=== PATIENT | male | born 1985 | race Caucasian/White ===

== ENCOUNTER 2019-04-14 20:13 | Emergency (ER) | payer BC, OTHER ==
[2019-04-14] MEDS ORDERED: NA CHLORIDE 0.9% 1,000 ML ONE (20:34)
--- NOTE | 2019-04-14 20:40 | RAD REPORT ---
EXAM DESCRIPTION: CT - Head Brain Wo Cont - 04/14/2019 8:30 pm CLINICAL HISTORY: Syncope COMPARISON: None. TECHNIQUE: Computed axial tomography of the head was obtained. IV contrast was not requested. All CT scans are performed using dose optimization technique as appropriate and may include automated exposure control or mA/KV adjustment according to patient size. FINDINGS: An intracranial bleed is not seen . The ventricles are normal in caliber. No extra-axial fluid collection is noted. Opacification of left frontal sinus with partial opacification of left ethmoid sinus and mild mucoper iosteal thickening left maxillary sinus compatible with sinusitis IMPRESSION: No acute intracranial abnormality is seen. If patient's symptoms persist MRI of the bra in would be recommended. Sinusitis
[2019-04-14 20:43] LABS: Absolute Lymphocytes (CBC) 2.5 K/uL (0.7-4.9); Basophils % 0.5 % (0-1.3); Hematocrit 41.7 % (39.6-49.0); Lymphocytes % 21.4 % (15.3-44.8); MPV 8.8 fL (7.6-11.3); RBC Red Blood Cell Count 4.71 M/uL (4.33-5.43)
[2019-04-14 21:10] LABS: BUN Blood Urea Nitrogen 15 mg/dL (7-18); Bicarbonate 25 mmol/L (21-32); Creatine Phosphokinase 138 U/L (39-308); Glucose Level 86 mg/dL (74-106); Potassium 4.3 mmol/L (3.5-5.1); Sodium Level 140 mmol/L (136-145); Troponin (Emerg Dept Use Only) < 0.02 ng/mL (0.0-0.045)
[2019-04-14 22:31] LABS: Urine Blood NEGATIVE (NEG); Urine Glucose NEGATIVE (NEG); Urine Protein NEGATIVE (NEG); Urine Specific Gravity 1.015 (1.005-1.030); Urine pH 5.5 (5.0-7.0)
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
--- NOTE | 2019-04-14 22:34 | EDPHYS ---
Physician Documentation [facility] Name: Michael Schuster Age: 34 yrs Sex: Male : 1985 Arrival Date: 04/14/2019 Time: 20:16 Bed 5 Private MD: ED Physician Drew Branch HPI: 04/14 20:23 This 34 yrs old Male presents to ER via Unassigned with complaints of Syncope.rn 20:23 The patient has experienced syncope. Onset: The symptoms/episode began/occurred just rn prior to arrival. Duration: This was a single episode, that lasted 20 second(s). Associated injury: The patient did not suffer any apparent associated injury. Current symptoms: Currently, the patient is not experiencing any symptoms. The patient has not experienced similar symptoms in the past. 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 No injury. No family hx of early cardiac problems or stroke. Patient states drinks a lot of caffeine and didn't eat prior to going to work. Glucose normal, given fluids and air conditioning and now back to normal. No focal neuro complaints. . Historical: - Allergies: 20:31 PENICILLINS; ea 20:31 Azithromycin; ea - Home Meds: 20:31 None [Active]; ea - PMHx: 20:31 None; ea - PSHx: 20:31 None; ea - Immunization history:: Adult Immunizations up to date. - Social history:: Smoking status: Patient/guardian denies using tobacco. - Family history:: not pertinent. - Ebola Screening: : No symptoms or risks identified at this time. - Hospitalizations: : No recent hospitalization is reported. ROS: 20:23 Constitutional: Negative for fever, chills, and weight loss, Eyes: Negative for injury, rn pain, redness, and discharge, Neck: Negative for injury, pain, and swelling, Cardiovascular: Negative for chest pain, palpitations, and edema, Respiratory: Negative for shortness of breath, cough, wheezing, and pleuritic chest pain, Abdomen/GI: Negative for abdominal pain, diarrhea, and constipation, MS/Extremity: Negative for injury and deformity, Skin: Negative for injury, rash, and discoloration, Neuro: Negative for headache, weakness, numbness, tingling, and seizure. Exam: 20:23 Constitutional: This is a well developed, well nourished patient who is awake, alert, rn and in no acute distress. Head/Face: Normocephalic, atraumatic. Eyes: Pupils equal round and reactive to light, extra-ocular motions intact. Lids and lashes normal. Conjunctiva and sclera are non-icteric and not injected. Cornea within normal limits. Periorbital areas with no swelling, redness, or edema. ENT: dry MM Neck: Trachea midline, no thyromegaly or masses palpated, and no cervical lymphadenopathy. Supple, full range of motion without nuchal rigidity, or vertebral point tenderness. No Meningismus. Cardiovascular: Regular rate and rhythm with a normal S1 and S2. No gallops, murmurs, or rubs. No JVD. No pulse deficits. Respiratory: Lungs have equal breath sounds bilaterally, clear to auscultation. No increased work of breathing, no retractions or nasal flaring. Abdomen/GI: soft, non-tender MS/ Extremity: Pulses equal, no cyanosis. Neurovascular intact. Full, normal range of motion. Equal circumference. Neuro: Awake and alert, GCS 15, oriented to person, place, time, and situation. Cranial nerves II-XII grossly intact. Motor strength 5/5 in all extremities. Sensory grossly intact. Cerebellar exam normal. 20:37 ECG was reviewed by the Attending Physician. rn Vital Signs: 20:31 BP 127 / 92; Pulse 81; Resp 18; Temp 98.1; Pulse Ox 100% ; Weight 70.76 kg; Height 5 ea ft. 7 in. (170.18 cm); Pain 0/10; 21:42 BP 115 / 64; Pulse 102; Resp 18; Pulse Ox 99% ; ea 22:35 BP 136 / 91; Pulse 98; Resp 18; Temp 98.1; Pulse Ox 99% on R/A; ak1 20:31 Body Mass Index 24.43 (70.76 kg, 170.18 cm) ea MDM: 20:18 Patient medically screened. rn 22:31 Differential Diagnosis: cardiac arrhythmia, idiopathic syncope, vasovagal episode, rn dehydration, heat exhaustion. Data reviewed: vital signs, nurses notes. Data reviewed: lab test result(s), EKG, radiologic studies, CT scan, and as a result, I will discharge patient. Counseling: I had a detailed discussion with the patient and/or guardian regarding: the historical points, exam findings, and any diagnostic results supporting the discharge/admit diagnosis, lab results, radiology results, the need for outpatient follow up, to return to the emergency department if symptoms worsen or persist or if there are any questions or concerns that arise at home. Response to treatment: the patient's symptoms have markedly improved after treatment, the patient's symptoms have resolved after treatment, the patient's condition has returned to base line, the patient is now symptom free, patient is well hydrated. and as a result, I will discharge patient. Special discussion: I discussed with the patient/guardian in detail that at this point there is no indication for admission to the hospital. It is understood, however, that if the symptoms persist or worsen the patient needs to return immediately for re-evaluation. 04/14 20:19 Order name: Basic Metabolic Panel; Complete Time: 21:20 rn 04/14 20:19 Order name: CBC with Diff; Complete Time: 21:20 rn 04/14 20:19 Order name: CPK; Complete Time: 21:20 rn 04/14 20:19 Order name: Troponin (emerg Dept Use Only); Complete Time: 21:20 rn 04/14 20:52 Order name: Glucose, Ancillary Testing; Complete Time: 21:20 EDMS 04/14 22:29 Order name: Urine Dipstick--Ancillary (enter results); Complete Time: 22:33 cm6 04/14 20:19 Order name: CT Head Brain wo Cont; Complete Time: 20:47 rn 04/14 20:19 Order name: EKG; Complete Time: 20:20 rn 04/14 20:19 Order name: Cardiac monitoring; Complete Time: 20:42 rn 04/14 20:19 Order name: EKG - Nurse/Tech; Complete Time: 20:42 rn 04/14 20:19 Order name: IV Saline Lock; Complete Time: 20:42 rn 04/14 20:48 Order name: CT Head Angio rn 04/14 20:48 Order name: CT Neck Angio rn 04/14 20:19 Order name: Labs collected and sent; Complete Time: 20:42 rn 04/14 20:19 Order name: O2 Per Protocol; Complete Time: 20:23 rn 04/14 20:19 Order name: O2 Sat Monitoring; Complete Time: 20:23 rn 04/14 20:19 Order name: Urine Dipstick-Ancillary (obtain specimen); Complete Time: 22:20 rn EC:37 Rate is 85 beats/min. Rhythm is regular. QRS [place] is Normal. IA interval is normal. QRS rn interval is normal. QT interval is normal. No Q waves. T waves are Normal. No ST changes noted. Clinical impression: Normal ECG. Interpreted by me. Reviewed by me. Administered Medications: 20:42 Drug: NS 0.9% 1000 ml Route: IV; Rate: 1000 ml; Site: left antecubital; ak1 22:47 Follow up: Response: No adverse reaction; IV Status: Completed infusion; IV Intake: ea 1000ml Point of Care Testing: Blood Glucose: :42 Blood Glucose: 83 mg/dL; ak1 Ranges: Critical Glucose Levels:Adult <50 mg/dl or >400 mg/dl <40 mg/dl or >180 mg/dl Disposition: 04/14/19 22:32 Discharged to Home. Impression: Syncope and collapse. - Condition is Stable. - Discharge Instructions: Syncope. - Medication Reconciliation Form, Thank You Letter, Antibiotic Education, Prescription Opioid Use, Work release form, Family Work Release form. - Follow up: Private Physician; When: As needed; Reason: Recheck today's complaints, Re-evaluation by your physician. - Problem is new. - Symptoms have improved. Signatures: Dispatcher [employer] EDMS Drew Branch MD MD rn Krenek, Amber, RN RN ak1 Margarita Amaya RN RN ea Corrections: (The following items were deleted from the chart) 22:49 22:32 04/14/2019 22:32 Discharged to Home. Impression: Syncope and collapse. Condition ea is Stable. Forms are Medication Reconciliation Form, Thank You Letter, Antibiotic Education, Prescription Opioid Use. Follow up: Private Physician; When: As needed; Reason: Recheck today's complaints, Re-evaluation by your physician. Problem is new. Symptoms have improved. rn
[2019-04-14 23:18] VITALS: TEMP 98.1
[2019-04-14 23:20] VITALS: O2SAT 99
[2019-04-14 23:21] VITALS: BP 136/91
--- NOTE | 2019-04-15 09:41 | RAD REPORT ---
EXAM DESCRIPTION: CT ANGIOGRAPHY OF THE HEAD AND NECK CLINICAL HISTORY: Syncope. TECHNIQUE: Following the administration of intravenous contrast, thin section axial CT angiography i mages of the head and neck were obtained. Coronal and sagittal reformatted images were generated. This exam was performed according to our departmental dose-optimization program, which includes auto mated exposure control, adjustment of the mA and/or kV according to patient size and/or use of iterat ely reconstruction technique. INTRAVENOUS CONTRAST: Not documented. Please refer to medical record. COMPARISON: None FINDINGS: CTA BRAIN: The distal petrous, cavernous, and supraclinoid internal carotid arteries are unremarkable. The BRANT and MCA branches have a normal course and caliber. An anterior communicating artery is seen . The basilar and vertebral arteries have a normal course and caliber. The left vertebral artery is d ominant. The TOEING STOCKINGS and bilateral SCA branches show no focal abnormalities. The origins of the PICAs are visualized. The P1 segment of the right posterior cerebral artery is hypoplastic. There is evide nce of a posterior communicating artery on the right.. CTA NECK: There is a normal three vessel aortic arch. The origins of the vessels arising from the arch are pa tent. Anterior Circulation: The common or cervical internal carotid arteries are unremarkable. The caroti d bulbs are unremarkable. Posterior Circulation: The vertebral arteries arise from the subclavian arteries. The vertebral a rtery origins are patent. The left vertebral artery is dominant. COMBINED IMPRESSION: 1. 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 2. Otherwise, unremarkable study. Electronically signed by: Jean Marie Resendiz MD 04/14/2019 9:47 PM BLOOM CONVEYOR OPERATOR Due to temporary technical issues with the PACS/Fluency reporting system, reports are being signed by the in house radiologist as a courtesy to ensure prompt reporting. The interpreting radiologist is f ully responsible for the content of the report.
--- NOTE | 2019-04-15 09:42 | RAD REPORT ---
EXAM DESCRIPTION: CT ANGIOGRAPHY OF THE HEAD AND NECK CLINICAL HISTORY: Syncope. TECHNIQUE: Following the administration of intravenous contrast, thin section axial CT angiography i mages of the head and neck were obtained. Coronal and sagittal reformatted images were generated. This exam was performed according to our departmental dose-optimization program, which includes auto mated exposure control, adjustment of the mA and/or kV according to patient size and/or use of iterat ely reconstruction technique. INTRAVENOUS CONTRAST: Not documented. Please refer to medical record. COMPARISON: None FINDINGS: CTA BRAIN: The distal petrous, cavernous, and supraclinoid internal carotid arteries are unremarkable. The BRANT and MCA branches have a normal course and caliber. An anterior communicating artery is seen . The basilar and vertebral arteries have a normal course and caliber. The left vertebral artery is d ominant. The REFRIGERATION TECH and bilateral SCA branches show no focal abnormalities. The origins of the PICAs are visualized. The P1 segment of the right posterior cerebral artery is hypoplastic. There is evide nce of a posterior communicating artery on the right.. CTA NECK: There is a normal three vessel aortic arch. The origins of the vessels arising from the arch are pa tent. Anterior Circulation: The common or cervical internal carotid arteries are unremarkable. The caroti d bulbs are unremarkable. Posterior Circulation: The vertebral arteries arise from the subclavian arteries. The vertebral a rtery origins are patent. The left vertebral artery is dominant. COMBINED IMPRESSION: 1. 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 2. Otherwise, unremarkable study. Electronically signed by: Jean Marie Resendiz MD 04/14/2019 9:47 PM BAKERY AND DELI SALES MANAGER Due to temporary technical issues with the PACS/Fluency reporting system, reports are being signed by the in house radiologist as a courtesy to ensure prompt reporting. The interpreting radiologist is f ully responsible for the content of the report.
--- NOTE | 2019-04-15 17:25 | EKG ---
Test Date: 2019-04-14 Test Time: 20:35:52 Burning Supervisor: REID MEASUREMENT RESULTS: Intervals: Rate: 85 MI: 168 QRSD: 92 QT: 336 QTc: 399 [place]: P: 63 MI: 168 QRS: 36 T: 36 INTERPRETIVE STATEMENTS: Normal sinus rhythm Normal ECG No previous ECG available for comparison Electronically Signed On 04-15-19 17:22:02 CEMENT SACK BREAKER by Tyree Cisneros
== END 2019-04-14 22:49 | disposition home or self-care (01) ==
LOC: ER 20:13
DX: R55 Syncope and collapse (principal); Z88.0 Allergy status to penicillin; Z88.1 Allergy status to other antibiotic agents
CPT/HCPCS: 93005; 85025; 80048; 36415; 82550; 82947; 81003; 84484; 70450; 70496; 70498; Q9967; 96360; 96361; 99284; J7030

== ENCOUNTER 2021-12-26 13:48 | Emergency (ER) | payer OTHER ==
[2021-12-26] MEDS ORDERED: NA CHLORIDE 0.9% 1,000 ML ONE (14:09)
[2021-12-26 14:23] LABS: Absolute Lymphocytes (CBC) 2.4 K/uL (0.7-4.9); Hematocrit 41.5 % (39.6-49.0); Lymphocytes % 33.3 % (15.3-44.8); MCV 88.7 fL (80-100); MPV 8.7 fL (7.6-11.3); RBC Red Blood Cell Count 4.68 M/uL (4.33-5.43)
[2021-12-26 14:36] LABS: Potassium 3.3 mmol/L (3.5-5.1)
[2021-12-26 15:06] LABS: Urine Blood Negative (Negative); Urine Glucose Negative (Negative); Urine Protein Negative (Negative); Urine Specific Gravity 1.025 (1.005-1.030); Urine pH 5.5 (5.0-7.0)
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
[2021-12-26] MEDS ORDERED: POTASSIUM CL SA 10 MEQ TAB PO ONE (15:42)
[2021-12-26 15:54] VITALS: BP 116/78; O2SAT 99
== END 2021-12-26 15:42 | disposition home or self-care (01) ==
LOC: ER 13:48
DX: T67.5XXA Heat exhaustion, unspecified, initial encounter (principal); Z88.0 Allergy status to penicillin; Z88.3 Allergy status to other anti-infective agents
CPT/HCPCS: 36415; 80048; 81003; 82550; 85025; J7030

== ENCOUNTER 2023-09-29 01:10 | Emergency (ER) | payer BC, OTHER ==
[2023-09-29 02:14] LABS: PT Prothrombin Time 10.7 SECONDS (9.5-12.5); Protime INR 0.97
[2023-09-29 02:15] LABS: Absolute Basophils 0.1 K/uL (0-0.5); Absolute Eosinophils 0.2 K/uL (0-0.5); Absolute Lymphocytes (CBC) 3.3 K/uL (0.7-4.9); Absolute Monocytes 0.7 K/uL (0.1-1.3); Absolute Neutrophil 3.5 K/uL (1.8-8.0); Basophils % 0.7 % (0-1.3); Eosinophils % 2.3 % (0-4.4); Hematocrit 40.2 % (39.6-49.0); Hemoglobin 14.1 g/dL (13.6-17.9); Lymphocytes % 42.3 % (15.3-44.8); MCH 31.7 pg (27.0-35.0); MCHC 35.1 g/dL (32.0-36.0); MCV 90.2 fL (80-100); MPV 9.1 fL (7.6-11.3); Monocytes % 9.1 % (3.3-12.3); Neutrophils % 45.6 % (41.7-73.7); Platelets 250 thou/uL (152-406); RBC Red Blood Cell Count 4.46 M/uL (4.33-5.43); Red Cell Distribution Width 12.8 % (12.1-15.2)
[2023-09-29 02:30] LABS: ALT/SGPT 109 U/L (16-61); AST/SGOT 68 U/L (15-37); Albumin 3.6 g/dL (3.4-5.0); Albumin/Globulin Ratio 1.1 (1.1-1.8); Alkaline Phosphatase 114 U/L (45-117); Anion Gap 7.4 mEq/L (5.0-15.0); BUN Blood Urea Nitrogen 15 mg/dL (7-18); Bicarbonate 29 mEq/L (21-32); Bilirubin Direct 0.3 mg/dL (0-0.2); Bilirubin Total 1.3 mg/dL (0.2-1.0); Globulin 3.3 g/dL (2.3-3.5); Glomerular Filtration Rate 97 ml/min (=/>90); Glucose Level 118 mg/dL (74-106); Lipase 39 U/L (13-75); Magnesium 2.1 mg/dL (1.6-2.4); NT PRO-BNP 6 pg/mL (<125); Potassium 3.4 mEq/L (3.5-5.1); Protein, Total 6.9 g/dL (6.4-8.2); Sodium Level 140 mEq/L (136-145); Troponin High Sensitivity 6.4 pg/mL (<58.9)
[2023-09-29 02:31] LABS: C-Reactive Protein < 2.90 mg/L (<3.00)
--- NOTE | 2023-09-29 04:51 | EDPHYS ---
Physician Documentation [facility] Name: Michael Schuster Age: 38 yrs Sex: Male : 1985 Arrival Date: 09/29/2023 Time: 01:10 Bed 18 Private MD: ED Physician Efrain Encarnacion HPI: 09/28 01:35 This 38 yrs old Male presents to ER via EMS with complaints of Abdominal Pain. 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 04:46 38-year-old male presents with acute onset of chest discomfort lasting about 15 minutes sp4 just prior to arrival.. Historical: - Allergies: 01:30 Azithromycin; km8 01:30 PENICILLINS; km8 - Home Meds: 01:30 None [Active]; 8 - PMHx: 01:30 Cleft Pallet; 8 - PSHx: 01:30 None; km8 - Immunization history:: Adult Immunizations up to date. - Infectious Disease History:: Denies. - Social history:: Smoking status: Patient denies any tobacco usage or history of. Patient uses alcohol, but reports only rare drinking. Patient/guardian denies using street drugs. - Family history:: not pertinent. ROS: 04:46 Constitutional: Negative for fever, chills, and weight loss, positive for transient sp4 chest discomfort 04:46 All other systems are negative, Exam: 04:46 Constitutional: This is a well developed, well nourished patient who is awake, alert, sp4 and in no acute distress. Head/Face: Normocephalic, atraumatic. Eyes: Pupils equal round and reactive to light, extra-ocular motions intact. Lids and lashes normal. Conjunctiva and sclera are not injected. Cornea within normal limits. Periorbital areas with no swelling, redness, or edema. ENT: Nares patent. No nasal discharge, no septal abnormalities noted. Tympanic membranes are normal and external auditory canals are clear. Oropharynx with no redness, swelling, or masses, exudates, or evidence of obstruction, uvula midline. Mucous membranes moist. Neck: Trachea midline, no thyromegaly or masses palpated, and no cervical lymphadenopathy. Supple, full range of motion without nuchal rigidity, or vertebral point tenderness. Chest/axilla: Normal chest wall appearance and motion. Nontender with no deformity. No lesions are appreciated. Cardiovascular: Regular rate and rhythm with a normal S1 and S2. No gallops, murmurs, or rubs. Normal PMI, no JVD. No pulse deficits. Respiratory: Lungs have equal breath sounds bilaterally, clear to auscultation and percussion. No rales, rhonchi or wheezes noted. No increased work of breathing, no retractions or nasal flaring. Abdomen/GI: Soft, with normal bowel sounds. No distension or tympany. No guarding or rebound. No evidence of tenderness throughout. Back: No spinal tenderness. No costovertebral tenderness. Skin: Warm, dry with normal turgor. Normal color with no rashes, no lesions, and no evidence of cellulitis. MS/ Extremity: Pulses equal, no cyanosis. Neurovascular intact. Full, normal range of motion. Neuro: Awake and alert, GCS 15, oriented to person, place, time, and situation. Cranial nerves II-XII grossly intact. Motor strength 5/5 in all extremities. Sensory grossly intact. Psych: Awake, alert, with orientation to person, place and time. Behavior, mood, and affect are within normal limits 04:46 ECG was reviewed by the Attending Physician. EKG at 0 154 normal sinus rhythm at a rate of 73 Vital Signs: 01:29 BP 136 / 89; Pulse 72; Resp 16; Temp 98(O); Pulse Ox 98% on R/A; Weight 70.31 kg (R); km8 Height 5 ft. 7 in. (R); Pain 0/10; 02:00 BP 140 / 87; Pulse 80; Resp 16; Pulse Ox 99% ; km8 02:30 BP 134 / 81; Pulse 80; Resp 16; Pulse Ox 98% on R/A; km8 03:00 BP 135 / 90; Pulse 73; Resp 16; Pulse Ox 100% on R/A; km8 03:30 BP 123 / 82; Pulse 74; Resp 16; Pulse Ox 97% on R/A; km8 04:00 BP 113 / 82; Pulse 73; Resp 16; Pulse Ox 96% on R/A; km8 04:30 BP 136 / 77; Pulse 86; Resp 16; Pulse Ox 99% on R/A; km8 01:29 Body Mass Index 24.28 (70.31 kg, 170.18 cm) 8 01:29 Pain Scale: Adult km8 Ambreen Coma Score: 01:33 Eye Response: spontaneous(4). Motor Response: obeys commands(6). Verbal Response: km8 oriented(5). Total: 15. 04:46 Eye Response: spontaneous(4). Motor Response: obeys commands(6). Verbal Response: sp4 oriented(5). Total: 15. MDM: 01:36 Patient medically screened. sp4 04:46 Differential Diagnosis altered mental status, sepsis, flu, Chest pain. Data reviewed: 4 vital signs, nurses notes, EMS record, lab test result(s), CBC, electrolytes, hepatic panel, EKG. Consideration of Admission/Observation Escalation of care including admission/observation considered. ED course: Workup reveals mild elevation of AST ALT. Patient will be advised to to have repeat liver enzymes in 2 weeks at the primary care physician's office. . 05:14 ED course: EXAM: XR Chest, 1 View CLINICAL HISTORY: The patient is 38 years old and is sp4 Male; CHEST PAIN TECHNIQUE: Frontal view of the chest. COMPARISON: No relevant prior studies available. FINDINGS: LUNGS: Unremarkable. No consolidation. PLEURAL SPACE: Unremarkable. No pneumothorax. HEART: Unremarkable. No cardiomegaly. MEDIASTINUM: Unremarkable. Normal mediastinal contour. BONES/JOINTS: Unremarkable. No acute fracture. UPPER ABDOMEN: Unremarkable as visualized. IMPRESSION: No acute cardiopulmonary process. . 09/28 01:35 Order name: Basic Metabolic Panel; Complete Time: 04:09/28 01:35 Order name: CBC with Diff; Complete Time: 04:09/28 01:35 Order name: LFT's; Complete Time: 04:09/28 01:35 Order name: Magnesium; Complete Time: 04:09/28 01:35 Order name: NT PRO-BNP; Complete Time: 04:09/28 01:35 Order name: PT-INR; Complete Time: 04:4 09/28 01:35 Order name: Troponin HS; Complete Time: 04:09/28 01:36 Order name: Lipase; Complete Time: 04:09/28 01:36 Order name: CRP; Complete Time: 04:25 sp4 09/28 01:36 Order name: TSH; Complete Time: 04:25 sp4 09/28 01:36 Order name: T4 Free; Complete Time: 04:25 sp4 09/28 01:35 Order name: XRAY Chest (1 view) sp4 09/28 01:35 Order name: Cardiac monitoring; Complete Time: 01:45 sp4 09/28 01:35 Order name: EKG - Nurse/Tech; Complete Time: 01:57 sp4 09/28 01:35 Order name: IV Saline Lock; Complete Time: 01:45 sp4 09/28 01:35 Order name: Labs collected and sent; Complete Time: :45 sp4 09/28 01:35 Order name: O2 Per Protocol; Complete Time: :45 sp4 09/28 01:35 Order name: O2 Sat Monitoring; Complete Time: :45 4 EC:46 Rate is 73 beats/min. Rhythm is regular, Normal Sinus Rhythm. QRS [place] is Normal. GA sp4 interval is normal. QRS interval is normal. QT interval is normal. No Q waves. T waves are Normal. No ST changes noted. Clinical impression: Normal ECG. Interpreted by me. Reviewed by me. Administered Medications: No medications were administered Disposition Summary: 09/29/23 04:50 Discharge Ordered Problem: new sp4 Symptoms: have improved sp4 Condition: Stable sp4 Diagnosis - Chest pain, unspecified sp4 - Elevated liver enzymes, sp4 Followup: sp4 - With: Joseph Robles MD - When: 10 - 14 days - Reason: Recheck today's complaints Discharge Instructions: - Discharge Summary Sheet sp4 - Nonspecific Chest Pain, Adult, [id number] sp4 Forms: - Patient Portal Instructions sp4 Signatures: Dispatcher [employer] Efrain Vaca MD MD sp4 Lissett Mcintosh RN RN km8 Corrections: (The following items were deleted from the chart) 01:36 01:36 BASIC METABOLIC PANEL+C.LAB.BRZ ordered. EDMS EDMS 01:36 01:36 CBC+H.LAB.BRZ ordered. EDMS EDMS 01:36 01:36 HEPATIC FUNCTION+C.LAB.BRZ ordered. EDMS EDMS 01:36 01:36 MAGNESIUM+C.LAB.BRZ ordered. EDMS EDMS 01:36 01:36 PROBNP+C.LAB.BRZ ordered. EDMS EDMS 01:36 01:36 PROTIME (+INR)+COAG.LAB.BRZ ordered. EDMS EDMS 01:36 01:36 Troponin High Sensitivity+C.LAB.BRZ ordered. EDMS EDMS 01:36 01:36 LIPASE+C.LAB.BRZ ordered. EDMS EDMS 01:36 01:36 C-REACTIVE PROTEIN+C.LAB.BRZ ordered. EDMS EDMS
--- NOTE | 2023-09-29 04:51 | ER ---
Nurse's Notes [facility] Name: Michael Schuster Age: 38 yrs Sex: Male : 1985 Arrival Date: 09/29/2023 Time: 01:10 Bed 18 Private MD: Diagnosis: Chest pain, unspecified;Elevated liver enzymes, Presentation: 09/28 01:29 Chief complaint: EMS states: toned out for ABD pain, SOB, and nausea. Coronavirus km8 screen: Client denies travel out of the [place] in the last 14 days. Ebola Screen: No symptoms or risks identified at this time. Initial Sepsis Screen: Does the patient meet any 2 criteria? No. Patient's initial sepsis screen is negative. Does the patient have a suspected source of infection? No. Patient's initial sepsis screen is negative. Risk Assessment: Do you want to hurt yourself or someone else? Patient reports no desire to harm self or others. Onset of symptoms was September 15, 2023. 01:29 Method Of Arrival: EMS: [facility] km8 01:29 Acuity: SEFERINO 3 km8 Triage Assessment: 01:30 General: Appears in no apparent distress. comfortable, Behavior is calm, cooperative, km8 appropriate for age. Pain: Complains of pain in right upper quadrant and left upper quadrant Pain currently is 0 out of 10 on a pain scale. at worst was 8 out of 10 on a pain scale. EENT: No signs and/or symptoms were reported regarding the EENT system. Neuro: Level of Consciousness is awake, alert, obeys commands, Oriented to person, place, time, situation. Cardiovascular: Denies chest pain, shortness of breath, Patient's skin is warm and dry. Respiratory: Airway is patent Respiratory effort is even, unlabored, Respiratory pattern is regular, symmetrical. GI: Abdomen is non-distended, Abd is non tender Reports upper abdominal pain, nausea. : No signs and/or symptoms were reported regarding the genitourinary system. Derm: No signs and/or symptoms reported regarding the dermatologic system. Skin is intact, is healthy with good turgor, Skin is dry, Skin is pink, warm \T\ dry. normal, Skin temperature is warm. Musculoskeletal: No signs and/or symptoms reported regarding the musculoskeletal system. Range of motion: intact in all extremities. Historical: - Allergies: 01:30 Azithromycin; 8 01:30 PENICILLINS; 8 - Home Meds: :30 None [Active]; 8 - PMHx: 01:30 Cleft Pallet; 8 - PSHx: 01:30 None; km8 - Immunization history:: Adult Immunizations up to date. - Infectious Disease History:: Denies. - Social history:: Smoking status: Patient denies any tobacco usage or history of. Patient uses alcohol, but reports only rare drinking. Patient/guardian denies using street drugs. - Family history:: not pertinent. Screenin:33 [facility] ED Fall Risk Assessment (Adult) History of falling in the last 3 months, km8 including since admission No falls in past 3 months (0 pts) Confusion or Disorientation No (0 pts) Intoxicated or Sedated No (0 pts) Impaired Gait No (0 pts) Mobility Assist Device Used No (0 pt) Altered Elimination No (0 pt) Score/Fall Risk Level 0 - 2 = Low Risk Oriented to surroundings, Maintained a safe environment, Educated pt \T\ family on fall prevention, incl call for assistance when getting out of bed, Assessed \T\ reinforced patient's understanding of fall precautions. Abuse screen: Denies threats or abuse. Denies injuries from another. Nutritional screening: No deficits noted. Tuberculosis screening: No symptoms or risk factors identified. Assessment: :33 Reassessment: see triage assessment. km8 02:02 Reassessment: Patient appears in no apparent distress at this time. No changes from km8 previously documented assessment. Patient and/or family updated on plan of care and expected duration. Pain level reassessed. Patient is alert, oriented x 3, equal unlabored respirations, skin warm/dry/pink. 03:00 Reassessment: Patient appears in no apparent distress at this time. No changes from km8 previously documented assessment. Patient and/or family updated on plan of care and expected duration. Pain level reassessed. Patient is alert, oriented x 3, equal unlabored respirations, skin warm/dry/pink. 04:00 Reassessment: Patient appears in no apparent distress at this time. No changes from 8 previously documented assessment. Patient is alert, oriented x 3, equal unlabored respirations, skin warm/dry/pink. Vital Signs: 01:29 BP 136 / 89; Pulse 72; Resp 16; Temp 98(O); Pulse Ox 98% on R/A; Weight 70.31 kg (R); km8 Height 5 ft. 7 in. (R); Pain 0/10; 02:00 BP 140 / 87; Pulse 80; Resp 16; Pulse Ox 99% ; km8 02:30 BP 134 / 81; Pulse 80; Resp 16; Pulse Ox 98% on R/A; km8 03:00 BP 135 / 90; Pulse 73; Resp 16; Pulse Ox 100% on R/A; km8 03:30 BP 123 / 82; Pulse 74; Resp 16; Pulse Ox 97% on R/A; km8 04:00 BP 113 / 82; Pulse 73; Resp 16; Pulse Ox 96% on R/A; km8 04:30 BP 136 / 77; Pulse 86; Resp 16; Pulse Ox 99% on R/A; km8 01:29 Body Mass Index 24.28 (70.31 kg, 170.18 cm) km8 01:29 Pain Scale: Adult km8 Ambreen Coma Score: 01:33 Eye Response: spontaneous(4). Motor Response: obeys commands(6). Verbal Response: km8 oriented(5). Total: 15. 04:46 Eye Response: spontaneous(4). Motor Response: obeys commands(6). Verbal Response: sp4 oriented(5). Total: 15. ED Course: 01:17 Patient arrived in ED. rv1 01:21 Lissett Mcintosh, RN is Primary Nurse. km8 01:30 Triage completed. km8 01:30 Arm band placed on right wrist. km8 01:31 Efrain Encarnacion MD is Attending Physician. sp4 01:33 Patient has correct armband on for positive identification. Bed in low position. Call km8 light in reach. Side rails up X2. Pulse ox on. NIBP on. 01:33 Inserted saline lock: 20 gauge in left antecubital area, using aseptic technique. Blood km8 collected. 01:45 T4 Free Sent. 8 01:45 TSH Sent. km8 01:45 CRP Sent. km8 01:45 Lipase Sent. km8 01:45 Basic Metabolic Panel Sent. 8 01:45 CBC with Diff Sent. 8 01:45 LFT's Sent. km8 01:45 Magnesium Sent. km8 01:45 NT PRO-BNP Sent. km8 01:45 PT-INR Sent. km8 01:45 Troponin HS Sent. km8 01:45 Initial lab(s) drawn, by me, sent to lab. km8 02:02 EKG done, by ED staff, reviewed by Efrain Encarnacion MD. km8 02:08 XRAY Chest (1 view) In Process Unspecified. EDMS 04:48 Provided Education on: d/c teaching. km8 04:48 No provider procedures requiring assistance completed. IV discontinued, intact, km8 bleeding controlled, No redness/swelling at site. Pressure dressing applied. 04:50 Joseph Robles MD is Referral Physician. sp4 Administered Medications: No medications were administered Medication: :34 VIS not applicable for this client. km8 Outcome: 04:50 Discharge ordered by MD. sp4 05:03 Discharged to home ambulatory, with family, km8 05:03 Condition: good 05:03 Discharge instructions given to patient, family, Instructed on discharge instructions, follow up and referral plans. Demonstrated understanding of instructions, follow-up care, 05:03 Patient left the ED. km8 Signatures: Dispatcher [employer] EDMS Nakita Funez rv1 Efrain Encarnacion MD MD sp4 Lissett Mcintosh RN RN km8 Corrections: (The following items were deleted from the chart) 01:34 01:30 GI: Abdomen is non-distended, Reports upper abdominal pain, nausea, km8 km8
[2023-09-29 05:21] VITALS: BP 136/77; TEMP 98; O2SAT 99
--- NOTE | 2023-09-29 11:12 | RAD REPORT ---
EXAM DESCRIPTION: RAD - Chest Single View - 09/29/2023 2:07 am CLINICAL HISTORY: The patient is 38 years old and is Male; CHEST PAIN TECHNIQUE: Frontal view of the chest. COMPARISON: No relevant prior studies available. FINDINGS: LUNGS: Unremarkable. No consolidation. PLEURAL SPACE: Unremarkable. No pneumothorax. HEART: Unremarkable. No cardiomegaly. MEDIASTINUM: Unremarkable. Normal mediastinal contour. BONES/JOINTS: Unremarkable. No acute fracture. UPPER ABDOMEN: Unremarkable as visualized. IMPRESSION: No acute cardiopulmonary process. Electronically signed by: Eliza Crabtree MD 09/29/2023 02:37 AM CDT Due to temporary technical issues with the PACS/Fluency reporting system, reports are being signed by the in house radiologist without review as a courtesy to ensure prompt reporting. The interpreting r adiologist is fully responsible for the content of the report.
== END 2023-09-29 05:03 | disposition home or self-care (01) ==
LOC: ER 01:10
DX: R07.9 Chest pain, unspecified (principal); R74.01 Elevation of levels of liver transaminase levels; Z88.0 Allergy status to penicillin; Z88.1 Allergy status to other antibiotic agents
CPT/HCPCS: 36415; 71045; 80048; 80076; 83690; 83735; 83880; 84439; 84443; 84484; 85025; 85610; 86140; 93005; 99284